=== PATIENT | male | born 1985 | race Two or more races ===

== ENCOUNTER → 2023-06-15 | Emergency (ER) | payer SELFPAY | END | disposition left against medical advice (07) | LOC: ER 21:13 | DX: K62.89 Other specified diseases of anus and rectum (principal); Z53.21 Procedure and treatment not carried out due to patient leaving prior to being seen by health care provider ==

== ENCOUNTER 2025-06-21 11:57 | Emergency (ER) | payer OTHER ==
[~2025-06-21] VITALS: Ht 167.6 cm; Wt 80.8 kg
--- NOTE | 2025-06-21 12:11 | ECG ---
[facility] Test Date: 2025-06-21 Test Time: 12:09:52 Pat Name: GLEN BOWENS Department: Room: Gender: M Hvac Tech: LINCOLN : 1985 Requested By: SAM PEREZ Order Number: [id number] Reading MD: Jigar Keller Measurements Intervals [place] Rate: 97 P: 55 VA: 125 QRS: -67 QRSD: 102 T: 33 QT: 358 QTc: 455 Interpretive Statements Sinus rhythm Markedly posterior QRS axis Electronically Signed On 06-22-2025 10:33:19 PST by Jigar Keller Please click the below link to view image of tracing.
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
--- NOTE | 2025-06-21 13:00 | DVH ---
CHEST RADIOGRAPH INDICATION: sob TECHNIQUE: Single frontal view of the chest was obtained COMPARISON: None FINDINGS: Lines and Tubes: None Lungs: Clear Pleura: No effusion. No pneumothorax. Cardiomediastinal contours: Unremarkable Bones: Unremarkable IMPRESSION: 1. No acute disease.
[2025-06-21 13:12] VITALS: BP 160/76; PULSE 89; RESP 16; TEMP 98; O2SAT 99
== END 2025-06-21 15:19 | disposition home or self-care (01) ==
LOC: ER 11:57
DX: I16.0 Hypertensive urgency (principal); F41.9 Anxiety disorder, unspecified; Z79.899 Other long term (current) drug therapy
CPT/HCPCS: 36415; 71045; 85379; 93005